=== PATIENT | male | born 1955 | race Caucasian/White ===

== ENCOUNTER 2016-12-25 09:34 | Outpatient (CLI) | payer OTHER ==
[~2016-12-25] VITALS: Ht 185.4 cm; Wt 87.1 kg
[2016-12-25] VITALS (19 sets, daily range): BP systolic 107–155; BP diastolic 71–105; PULSE 61–99
[~2016-12-25 09:34] MED LIST: PRILOSEC 20MG20 MG PO
[2017-01-04] MEDS ORDERED: NORCO 325 MG-51 TAB PO (13:20)
[2017-01-04] MEDS ORDERED: FLEXERIL 1010 MG/TAB PO (13:20)
== END 2016-12-25 15:42 | disposition home or self-care (01) ==
LOC: COL.RAD 09:34
DX: R91.8 Other nonspecific abnormal finding of lung field (principal)

== ENCOUNTER → 2016-12-27 | Outpatient (CLI) | payer OTHER | LOC: COL.PUL 08:00 | DX: R91.8 Other nonspecific abnormal finding of lung field (principal); Z87.891 Personal history of nicotine dependence ==

== ENCOUNTER → 2017-01-09 | Outpatient (CLI) | payer OTHER ==
[~2017-01-09] MED LIST changes: +FLEXERIL 1010 MG/TAB PO; +NORCO 325 MG-51 TAB PO
== END ==
LOC: COL.RAD 07:30
DX: C34.31 Malignant neoplasm of lower lobe, right bronchus or lung (principal); G31.9 Degenerative disease of nervous system, unspecified; M89.9 Disorder of bone, unspecified
CPT/HCPCS: A9585

== ENCOUNTER 2017-03-07 01:09 | Observation (INO) | payer OTHER ==
[~2017-03-07] VITALS: Ht 185.4 cm; Wt 89.0 kg
[2017-03-07] VITALS (21 sets, daily range): BP systolic 95–111; BP diastolic 55–65; PULSE 73–93; TEMP 97.3–100.9
[2017-03-07 01:51] LABS: MEAN CELL VOLUME 86 fl (80.0-100.0); MEAN CORPUSCULAR HGB CONC 32 g/dl (33.0-37.0); MEAN PLATELET VOLUME 9.2 fl (7.4-10.4); PLATELET COUNT 205 K/mm3 (130-400); RED BLOOD COUNT 3.53 M/mm3 (4.20-5.60); WHITE BLOOD COUNT 6.9 K/mm3 (4.8-10.8)
[2017-03-07 01:54] LABS: ADD PATHOLOGY DIFF REVIEW NO; HEMATOCRIT 30.5 % (42.0-52.0); HEMOGLOBIN 9.7 g/dl (13.5-18.0); MEAN CORPUSCULAR HEMOGLOBIN 27 pg (27.0-31.0)
[2017-03-07 02:01] LABS: ADJUSTED CALCIUM 9.8 mg/dL (8.4-10.2); ALBUMIN 3.5 gm/dL (3.5-5.0); BILIRUBIN,TOTAL 0.5 mg/dL (0.0-1.0); CALCIUM 9.4 mg/dL (8.4-10.2); CREATININE, serum 0.88 mg/dL (0.66-1.25); MAGNESIUM 1.7 mg/dL (1.6-2.3); PHOSPHOROUS 2.8 mg/dL (2.5-4.5); POTASSIUM 4.3 mmol/L (3.4-5.0); TOTAL PROTEIN 7.7 gm/dL (6.4-8.2)
[2017-03-07 02:06] LABS: BAND 1 % (0-10); BASOPHIL 1 % (0-2); LYMPHOCYTE 3 % (20.0-51.0); NEUTROPHILS 93 % (42.0-75.2); TOTAL CELLS COUNTED 100
[2017-03-07 02:07] LABS: HYPOCHROMIA 1+; MICROCYTOSIS 1+; POIKILOCYTOSIS 1+; POLYCHROMASIA 1+; SPHEROCYTE 1+
[2017-03-07 02:08] LABS: ANISOCYTOSIS 2+
[2017-03-07 02:12] LABS: COLLECTION METHOD CLEAN CATCH
[2017-03-07 02:17] LABS: MUCOUS Present /lpf; PH 5 (5-8); SQUAMOUS EPITHELIAL 0-2 /hpf; URINE APPEARANCE Hazy; URINE BACTERIA None Seen /hpf; URINE BILIRUBIN Negative (NEGATIVE); URINE BLOOD 1+ (NEGATIVE); URINE COLOR Amber; URINE GLUCOSE Negative (NEGATIVE); URINE KETONE Negative (NEGATIVE); URINE LEUKOCYTE ESTERASE Negative (NEGATIVE); URINE PROTEIN(semi-quant) 1+ (NEGATIVE)
[2017-03-07 03:02] LABS: INFLUENZA A NEGATIVE; INFLUENZA B NEGATIVE
[2017-03-07] MEDS ORDERED: PROFERRIN ES12 MG PO (04:14)
[2017-03-07] MEDS ORDERED: CALCIUM 600MG+D1 TAB PO (04:15)
[2017-03-08 00:35] VITALS: BP 121/67; PULSE 95; TEMP 98.7; TEMP 99.4
[2017-03-08 01:20] VITALS: TEMP 99.2
[2017-03-08 03:00] VITALS: TEMP 99.5
[2017-03-08 04:14] VITALS: BP 116/67; PULSE 76; TEMP 99.3
[2017-03-08 07:14] LABS: BASO % 0.2 % (0.0-2.0); EOS # 0.1 (0.0-0.7); GRAN # 3.8 (1.4-6.5); GRAN % 72.4 % (42.2-75.2); LYMPH % 18.5 % (20.0-51.0); MEAN CELL VOLUME 87 fl (80.0-100.0); MEAN CORPUSCULAR HGB CONC 31 g/dl (33.0-37.0); MEAN PLATELET VOLUME 9.2 fl (7.4-10.4); MONO # 0.4 (0.1-0.6); MONO % 7.1 % (1.7-9.3); PLATELET COUNT 168 K/mm3 (130-400); RED BLOOD COUNT 3.28 M/mm3 (4.20-5.60); WHITE BLOOD COUNT 5.2 K/mm3 (4.8-10.8)
[2017-03-08 07:17] LABS: HEMATOCRIT 28.6 % (42.0-52.0); HEMOGLOBIN 8.9 g/dl (13.5-18.0); MEAN CORPUSCULAR HEMOGLOBIN 27 pg (27.0-31.0)
[2017-03-08 07:22] LABS: CALCIUM 8.6 mg/dL (8.4-10.2); CREATININE, serum 0.83 mg/dL (0.66-1.25); POTASSIUM 4.2 mmol/L (3.4-5.0)
[2017-03-08 07:53] VITALS: BP 118/67; PULSE 72; TEMP 98.2
[2017-03-08] MEDS ORDERED: CEPHALEXIN500 M1 PO (11:19)
== END 2017-03-08 14:46 | disposition home or self-care (01) ==
LOC: COL.ER 01:09 → MEDICAL 03:20
PROVIDERS: Emergency Medicine; Nurse Practitioner
DX: R50.9 Fever, unspecified (principal); C34.90 Malignant neoplasm of unspecified part of unspecified bronchus or lung; C77.9 Secondary and unspecified malignant neoplasm of lymph node, unspecified; Z87.891 Personal history of nicotine dependence; Z83.3 Family history of diabetes mellitus; Z82.3 Family history of stroke; Z82.49 Family history of ischemic heart disease and other diseases of the circulatory system
CPT/HCPCS: 99223-AI; G0378; J1650; J1956; J2405; J7030

== ENCOUNTER 2017-04-25 13:28 | Emergency (ER) | payer OTHER ==
[~2017-04-25] VITALS: Ht 182.9 cm; Wt 87.7 kg
[~2017-04-25 13:28] MED LIST changes: +CALCIUM 600MG+D1 TAB PO; +CEPHALEXIN500 M1 PO; +PROFERRIN ES12 MG PO
[2017-04-25 14:15] LABS: MEAN CELL VOLUME 94 fl (80.0-100.0); MEAN CORPUSCULAR HGB CONC 32 g/dl (33.0-37.0); MEAN PLATELET VOLUME 9.5 fl (7.4-10.4); PLATELET COUNT 273 K/mm3 (130-400); REDCELL DISTRIBUTION WIDTH-CV 21.9 % (11.5-14.5)
[2017-04-25 14:16] LABS: ALBUMIN 3.3 gm/dL (3.5-5.0); BILIRUBIN,TOTAL 0.6 mg/dL (0.0-1.0); CALCIUM 8.3 mg/dL (8.4-10.2); CREATININE, serum 0.72 mg/dL (0.66-1.25); POTASSIUM 3.1 mmol/L (3.4-5.0); TOTAL PROTEIN 7.2 gm/dL (6.4-8.2)
[2017-04-25 14:32] LABS: HEMATOCRIT 29.1 % (42.0-52.0); HEMOGLOBIN 9.3 g/dl (13.5-18.0); MEAN CORPUSCULAR HEMOGLOBIN 30 pg (27.0-31.0)
[2017-04-25 14:37] LABS: BAND 14 % (0-10); EOSINOPHIL 2 % (0-4); LYMPHOCYTE 9 % (20.0-51.0); MYELOCYTE 2 % (0-0); NEUTROPHILS 71 % (42.0-75.2); PLATELET ESTIMATE NORMAL (NORMAL)
[2017-04-25 15:07] LABS: ARTERIAL BLD GAS O2 SATURATION 88.1 % (92-100); ARTERIAL BLD GAS TCO2 CT 20.6; ARTERIAL BLOOD GAS BASE EXCESS -3.1 (-2-2); ARTERIAL BLOOD GAS HCO3 19.8 meq/L (22-26); ARTERIAL BLOOD GAS PCO2 27.7 mmHg (35-45); ARTERIAL BLOOD GAS PO2 53.2 mmHg (80-100); ARTERIAL BLOOD GAS pH 7.47 (7.35-7.45)
[2017-04-25 18:07] VITALS: BP 115/77; PULSE 100; TEMP 98.6
== END 2017-04-25 18:29 | disposition short-term general hospital (02) ==
LOC: COL.ER 13:28
PROVIDERS: Family Medicine
DX: J96.90 Respiratory failure, unspecified, unspecified whether with hypoxia or hypercapnia (principal); J18.9 Pneumonia, unspecified organism; Z85.118 Personal history of other malignant neoplasm of bronchus and lung; Z87.891 Personal history of nicotine dependence
CPT/HCPCS: J0456; J0696; J7030; J7050

== ENCOUNTER 2017-08-07 11:27 | Inpatient (IN) | payer OTHER ==
[~2017-08-07] VITALS: Ht 182.9 cm; Wt 98.7 kg
[2017-08-07] VITALS (261 sets, daily range): BP systolic 108–110; BP diastolic 77; PULSE 85–91; TEMP 96.9–97.9; O2SAT 84–100
[2017-08-07 12:08] LABS: MEAN CELL VOLUME 85 fl (80.0-100.0); MEAN CORPUSCULAR HGB CONC 30 g/dl (33.0-37.0); MEAN PLATELET VOLUME 9.1 fl (7.4-10.4); PLATELET COUNT 214 K/mm3 (130-400); RED BLOOD COUNT 3.74 M/mm3 (4.20-5.60); REDCELL DISTRIBUTION WIDTH-CV 19.9 % (11.5-14.5)
[2017-08-07 12:17] LABS: ALBUMIN 2.7 gm/dL (3.5-5.0); BILIRUBIN,TOTAL 1.1 mg/dL (0.0-1.0); CALCIUM 7.9 mg/dL (8.4-10.2); CREATININE, serum 1.08 mg/dL (0.66-1.25); INR 1.7 (0.8-3.0); POTASSIUM 4.2 mmol/L (3.4-5.0); PROTHROMBIN TIME 19.8 SECONDS (9.7-12.8); TOTAL PROTEIN 6.5 gm/dL (6.4-8.2)
[2017-08-07 12:18] LABS: HEMATOCRIT 31.8 % (42.0-52.0); HEMOGLOBIN 9.5 g/dl (13.5-18.0); MEAN CORPUSCULAR HEMOGLOBIN 25 pg (27.0-31.0)
[2017-08-07 12:19] LABS: PARTIAL THROMBOPLASTIN TIME 35.9 SECONDS (26.0-37.0)
[2017-08-07 12:42] LABS: BAND 29 % (0-10); LYMPHOCYTE 12 % (20.0-51.0); METAMYELOCYTE 1 % (0-0); MYELOCYTE 3 % (0-0); NEUTROPHILS 54 % (42.0-75.2); NUCLEATED RED BLOOD CELL 2 (0-6); PLATELET ESTIMATE NORMAL (NORMAL)
[2017-08-07 12:43] LABS: POLYCHROMASIA 1+
[2017-08-07 12:44] LABS: TOXIC GRANULATION PRESENT
[2017-08-07 13:15] LABS: ARTERIAL BLD GAS TCO2 CT 18.2; ARTERIAL BLOOD GAS BASE EXCESS -5.4 (-2-2); ARTERIAL BLOOD GAS HCO3 17.4 meq/L (22-26); ARTERIAL BLOOD GAS PCO2 25.5 mmHg (35-45); ARTERIAL BLOOD GAS PO2 111.1 mmHg (80-100); ARTERIAL BLOOD GAS pH 7.45 (7.35-7.45)
[2017-08-07] MEDS ORDERED: ROXICODONE 55 MG/TAB PO (14:48)
[2017-08-07] MEDS ORDERED: AMOXICILLIN 8751 TAB PO (14:48)
[2017-08-07] MEDS ORDERED: FENTANYL 12MCG TD (14:48)
[2017-08-07] MEDS ORDERED: PRILOSEC 20MG20 MG PO (14:49)
[2017-08-07] MEDS ORDERED: SOLU-MEDRO125 MG/21 IJ (14:50)
[2017-08-07] MEDS ORDERED: BENADRYL50 MG PO (14:50)
[2017-08-08] VITALS (498 sets, daily range): BP systolic 100–124; BP diastolic 65–85; PULSE 69–87; TEMP 97–98.7; O2SAT 54–100
[2017-08-08 04:31] LABS: MEAN CELL VOLUME 87 fl (80.0-100.0); MEAN CORPUSCULAR HGB CONC 30 g/dl (33.0-37.0); MEAN PLATELET VOLUME 10.3 fl (7.4-10.4); PLATELET COUNT 170 K/mm3 (130-400); RED BLOOD COUNT 2.93 M/mm3 (4.20-5.60); REDCELL DISTRIBUTION WIDTH-CV 19.8 % (11.5-14.5)
[2017-08-08 04:37] LABS: HEMATOCRIT 25.4 % (42.0-52.0); HEMOGLOBIN 7.6 g/dl (13.5-18.0); MEAN CORPUSCULAR HEMOGLOBIN 26 pg (27.0-31.0)
[2017-08-08 04:41] LABS: ALBUMIN 2.1 gm/dL (3.5-5.0); BILIRUBIN,TOTAL 0.6 mg/dL (0.0-1.0); CALCIUM 7.3 mg/dL (8.4-10.2); CREATININE, serum 0.94 mg/dL (0.66-1.25); TOTAL PROTEIN 5.2 gm/dL (6.4-8.2)
[2017-08-08 05:07] LABS: ANISOCYTOSIS 2+; BAND 8 % (0-10); HYPOCHROMIA 3+; LYMPHOCYTE 5 % (20.0-51.0); NEUTROPHILS 86 % (42.0-75.2); PLATELET ESTIMATE NORMAL (NORMAL)
[2017-08-08 09:02] LABS: ARTERIAL BLD GAS O2 SATURATION 96.3 % (92-100); ARTERIAL BLD GAS TCO2 CT 20.2; ARTERIAL BLOOD GAS BASE EXCESS -3.9 (-2-2); ARTERIAL BLOOD GAS HCO3 19.3 meq/L (22-26); ARTERIAL BLOOD GAS PCO2 27.7 mmHg (35-45); ARTERIAL BLOOD GAS PO2 87.4 mmHg (80-100); ARTERIAL BLOOD GAS pH 7.46 (7.35-7.45)
[2017-08-08 13:07] LABS: COLLECTION METHOD CLEAN CATCH
[2017-08-08 13:14] LABS: MUCOUS Present /lpf; PH 6 (5-8); SQUAMOUS EPITHELIAL None Seen /hpf; URINE APPEARANCE Hazy; URINE BACTERIA None Seen /hpf; URINE BILIRUBIN Negative (NEGATIVE); URINE BLOOD Negative (NEGATIVE); URINE COLOR Yellow; URINE GLUCOSE Negative (NEGATIVE); URINE KETONE Negative (NEGATIVE); URINE LEUKOCYTE ESTERASE Negative (NEGATIVE); URINE NITRATE Negative (NEGATIVE); URINE PROTEIN(semi-quant) 1+ (NEGATIVE); URINE RBC 0-2 /hpf; URINE UROBILINOGEN Negative (NEGATIVE)
[2017-08-08] MEDS ORDERED: FENTANYL 50MCG TD (19:54)
[2017-08-09 03:03] VITALS: BP 117/76; PULSE 93; TEMP 98.1
[2017-08-09 06:52] LABS: MEAN CELL VOLUME 89 fl (80.0-100.0); MEAN CORPUSCULAR HGB CONC 29 g/dl (33.0-37.0); MEAN PLATELET VOLUME 10.6 fl (7.4-10.4); PLATELET COUNT 152 K/mm3 (130-400); REDCELL DISTRIBUTION WIDTH-CV 19.9 % (11.5-14.5)
[2017-08-09 07:04] LABS: HEMATOCRIT 23.9 % (42.0-52.0); MEAN CORPUSCULAR HEMOGLOBIN 26 pg (27.0-31.0)
[2017-08-09 07:08] LABS: ALBUMIN 2.1 gm/dL (3.5-5.0); BILIRUBIN,TOTAL 0.6 mg/dL (0.0-1.0); CALCIUM 7.4 mg/dL (8.4-10.2); CREATININE, serum 0.7 mg/dL (0.66-1.25); POTASSIUM 3.7 mmol/L (3.4-5.0); TOTAL PROTEIN 5.2 gm/dL (6.4-8.2)
[2017-08-09 08:06] VITALS: BP 113/73; PULSE 94; TEMP 98.7
[2017-08-09 08:42] LABS: ANISOCYTOSIS 1+; BAND 5 % (0-10); HYPOCHROMIA 3+; LYMPHOCYTE 4 % (20.0-51.0); METAMYELOCYTE 1 % (0-0); NEUTROPHILS 80 % (42.0-75.2); NUCLEATED RED BLOOD CELL 1 (0-6); PLATELET ESTIMATE NORMAL (NORMAL)
[2017-08-09 11:30] VITALS: BP 115/73; PULSE 89; TEMP 97.8
[2017-08-09 16:44] VITALS: BP 126/74; PULSE 107; TEMP 97.8
[2017-08-09 20:34] VITALS: BP 136/84; PULSE 114; TEMP 99.2
[2017-08-09] MEDS ORDERED: FLEXERIL5 MG PO (22:36)
[2017-08-09 23:38] VITALS: BP 119/80; PULSE 116; TEMP 97.3
[2017-08-10] VITALS (9 sets, daily range): BP systolic 112–135; BP diastolic 48–90; PULSE 105–119; TEMP 97.6–99.7
[2017-08-10 06:36] LABS: MEAN CELL VOLUME 88 fl (80.0-100.0); MEAN CORPUSCULAR HGB CONC 30 g/dl (33.0-37.0); MEAN PLATELET VOLUME 10.8 fl (7.4-10.4); PLATELET COUNT 128 K/mm3 (130-400); RED BLOOD COUNT 2.65 M/mm3 (4.20-5.60); REDCELL DISTRIBUTION WIDTH-CV 20.4 % (11.5-14.5)
[2017-08-10 06:46] LABS: HEMATOCRIT 23.3 % (42.0-52.0); HEMOGLOBIN 6.9 g/dl (13.5-18.0); MEAN CORPUSCULAR HEMOGLOBIN 26 pg (27.0-31.0)
[2017-08-10 06:50] LABS: ALBUMIN 2.2 gm/dL (3.5-5.0); BILIRUBIN,TOTAL 0.9 mg/dL (0.0-1.0); CALCIUM 7.2 mg/dL (8.4-10.2); CREATININE, serum 0.64 mg/dL (0.66-1.25); POTASSIUM 3.6 mmol/L (3.4-5.0); TOTAL PROTEIN 5.4 gm/dL (6.4-8.2)
[2017-08-10 07:38] LABS: ANISOCYTOSIS 2+; BAND 5 % (0-10); LYMPHOCYTE 3 % (20.0-51.0); METAMYELOCYTE 3 % (0-0); NEUTROPHILS 84 % (42.0-75.2); NUCLEATED RED BLOOD CELL 2 (0-6); TOXIC GRANULATION PRESENT
[2017-08-10 07:39] LABS: HYPOCHROMIA 1+; POLYCHROMASIA 1+
[2017-08-11 03:59] VITALS: BP 116/76; PULSE 105; TEMP 98.8
[2017-08-11 08:46] VITALS: BP 111/76; PULSE 106; TEMP 99.1
[2017-08-11 09:50] LABS: BILIRUBIN,TOTAL 0.9 mg/dL (0.0-1.0); CALCIUM 6.8 mg/dL (8.4-10.2); CREATININE, serum 0.67 mg/dL (0.66-1.25); POTASSIUM 3.4 mmol/L (3.4-5.0); TOTAL PROTEIN 5.1 gm/dL (6.4-8.2)
[2017-08-11 11:32] VITALS: BP 99/65; PULSE 108; TEMP 100
[2017-08-11 13:10] LABS: BASO # 0.1 (0.0-0.2); BASO % 0.2 % (0.0-2.0); EOS % 0.1 % (0-4.0); GRAN # 26.5 (1.4-6.5); GRAN % 81.3 % (42.2-75.2); LYMPH # 0.9 (1.2-3.4); LYMPH % 2.7 % (20.0-51.0); MEAN CELL VOLUME 87 fl (80.0-100.0); MEAN CORPUSCULAR HGB CONC 30 g/dl (33.0-37.0); MONO # 2.2 (0.1-0.6); MONO % 6.6 % (1.7-9.3); PLATELET COUNT 131 K/mm3 (130-400); RED BLOOD COUNT 2.77 M/mm3 (4.20-5.60); REDCELL DISTRIBUTION WIDTH-CV 20.7 % (11.5-14.5)
[2017-08-11 13:14] LABS: HEMOGLOBIN 7.3 g/dl (13.5-18.0); MEAN CORPUSCULAR HEMOGLOBIN 26 pg (27.0-31.0)
[2017-08-11 15:59] VITALS: BP 103/66; PULSE 104; TEMP 98.7
[2017-08-11 19:18] VITALS: BP 114/70; PULSE 106; TEMP 98.2
[2017-08-11 21:17] LABS: COLLECTION METHOD CLEAN CATCH
[2017-08-11 21:40] LABS: MUCOUS Present /lpf; PH 5 (5-8); SQUAMOUS EPITHELIAL None Seen /hpf; URINE APPEARANCE Cloudy; URINE BACTERIA None Seen /hpf; URINE BILIRUBIN Negative (NEGATIVE); URINE BLOOD 2+ (NEGATIVE); URINE COLOR Amber; URINE GLUCOSE 1+ (NEGATIVE); URINE KETONE Negative (NEGATIVE); URINE LEUKOCYTE ESTERASE Trace (NEGATIVE); URINE NITRATE Negative (NEGATIVE); URINE PROTEIN(semi-quant) 2+ (NEGATIVE); URINE UROBILINOGEN Negative (NEGATIVE)
[2017-08-11 23:13] VITALS: BP 119/77; PULSE 100; TEMP 98.5
[2017-08-12 04:01] VITALS: BP 108/67; PULSE 105; TEMP 98
[2017-08-12 07:34] VITALS: BP 106/68; PULSE 104; TEMP 98.9
[2017-08-12 07:38] LABS: MEAN CELL VOLUME 86 fl (80.0-100.0); MEAN CORPUSCULAR HGB CONC 30 g/dl (33.0-37.0); MEAN PLATELET VOLUME 9.8 fl (7.4-10.4); PLATELET COUNT 126 K/mm3 (130-400); RED BLOOD COUNT 2.73 M/mm3 (4.20-5.60); REDCELL DISTRIBUTION WIDTH-CV 21.1 % (11.5-14.5)
[2017-08-12 07:40] LABS: HEMATOCRIT 23.5 % (42.0-52.0); HEMOGLOBIN 7.1 g/dl (13.5-18.0); MEAN CORPUSCULAR HEMOGLOBIN 26 pg (27.0-31.0)
[2017-08-12 07:44] LABS: ALBUMIN 2.1 gm/dL (3.5-5.0); CREATININE, serum 0.7 mg/dL (0.66-1.25); POTASSIUM 3.4 mmol/L (3.4-5.0); TOTAL PROTEIN 5.3 gm/dL (6.4-8.2)
[2017-08-12 08:10] LABS: IRON,SERUM 21 ug/dL (35-150)
[2017-08-12 08:10] LABS: ARTERIAL BLD GAS O2 SATURATION 90.9 % (92-100); ARTERIAL BLD GAS TCO2 CT 19.6; ARTERIAL BLOOD GAS BASE EXCESS -4.6 (-2-2); ARTERIAL BLOOD GAS HCO3 18.8 meq/L (22-26); ARTERIAL BLOOD GAS PCO2 27.8 mmHg (35-45); ARTERIAL BLOOD GAS pH 7.45 (7.35-7.45)
[2017-08-12 08:19] LABS: TOTAL IRON BINDING CAPACITY 131 ug/dL (261-462)
[2017-08-12 08:37] LABS: ANISOCYTOSIS 2+; BAND 1 % (0-10); HYPOCHROMIA 1+; LYMPHOCYTE 9 % (20.0-51.0); METAMYELOCYTE 3 % (0-0); MYELOCYTE 1 % (0-0); NEUTROPHILS 82 % (42.0-75.2); PLATELET ESTIMATE DECREASED (NORMAL)
[2017-08-12 08:38] LABS: POLYCHROMASIA 1+
[2017-08-12 10:21] LABS: FERRITIN 5770 ng/mL (18-464)
[2017-08-12 12:14] VITALS: BP 119/71; PULSE 110; TEMP 98
[2017-08-12 15:17] VITALS: BP 110/65; PULSE 99; TEMP 98.7
[2017-08-12 17:03] LABS: FOLATE (FOLIC ACID) 3.4 ng/mL (7.0-31.4)
[2017-08-12 19:50] VITALS: BP 112/76; PULSE 93; TEMP 97.4
[2017-08-12 23:52] VITALS: BP 117/73; PULSE 90; TEMP 98.1
[2017-08-13 04:24] VITALS: BP 105/78; PULSE 86; TEMP 97.9
[2017-08-13 06:52] LABS: ALBUMIN 2.1 gm/dL (3.5-5.0); BILIRUBIN,TOTAL 0.7 mg/dL (0.0-1.0); CALCIUM 7.5 mg/dL (8.4-10.2); CREATININE, serum 0.69 mg/dL (0.66-1.25); POTASSIUM 3.8 mmol/L (3.4-5.0); TOTAL PROTEIN 5.2 gm/dL (6.4-8.2)
[2017-08-13 08:44] VITALS: BP 123/79; PULSE 101; TEMP 97.8
[2017-08-13 11:28] VITALS: BP 120/64; PULSE 100; TEMP 97.7
[2017-08-13 15:45] VITALS: BP 123/81; PULSE 95; TEMP 98.6
[2017-08-13 19:40] VITALS: BP 127/82; PULSE 97; TEMP 97.3
[2017-08-13 23:08] VITALS: BP 127/81; PULSE 94; TEMP 97.5
[2017-08-14] VITALS (11 sets, daily range): BP systolic 119–143; BP diastolic 75–96; PULSE 87–108; TEMP 97.5–98.7
[2017-08-14 07:45] LABS: MEAN CELL VOLUME 87 fl (80.0-100.0); MEAN CORPUSCULAR HGB CONC 30 g/dl (33.0-37.0); PLATELET COUNT 137 K/mm3 (130-400); RED BLOOD COUNT 2.54 M/mm3 (4.20-5.60); REDCELL DISTRIBUTION WIDTH-CV 21.4 % (11.5-14.5)
[2017-08-14 07:52] LABS: MEAN CORPUSCULAR HEMOGLOBIN 26 pg (27.0-31.0)
[2017-08-14 07:53] LABS: HEMATOCRIT 22.2 % (42.0-52.0); HEMOGLOBIN 6.6 g/dl (13.5-18.0)
[2017-08-14 07:54] LABS: CALCIUM 7.7 mg/dL (8.4-10.2); CREATININE, serum 0.75 mg/dL (0.66-1.25); POTASSIUM 3.5 mmol/L (3.4-5.0)
[2017-08-14 08:08] LABS: AMYLASE 57 U/L (30-110); LIPASE 59 U/L (23-300)
[2017-08-14 08:56] LABS: BAND 4 % (0-10); LYMPHOCYTE 11 % (20.0-51.0); MYELOCYTE 1 % (0-0); NEUTROPHILS 81 % (42.0-75.2)
[2017-08-14 08:57] LABS: PLATELET ESTIMATE NORMAL (NORMAL)
[2017-08-14 08:58] LABS: ANISOCYTOSIS 2+; HYPOCHROMIA 1+
[2017-08-15] VITALS (7 sets, daily range): BP systolic 104–133; BP diastolic 42–87; PULSE 56–104; TEMP 97.6–98.7
[2017-08-15 06:32] LABS: MEAN CELL VOLUME 87 fl (80.0-100.0); MEAN CORPUSCULAR HGB CONC 31 g/dl (33.0-37.0); MEAN PLATELET VOLUME 10.2 fl (7.4-10.4); PLATELET COUNT 121 K/mm3 (130-400); RED BLOOD COUNT 2.61 M/mm3 (4.20-5.60)
[2017-08-15 06:42] LABS: MEAN CORPUSCULAR HEMOGLOBIN 27 pg (27.0-31.0)
[2017-08-15 06:43] LABS: HEMATOCRIT 22.7 % (42.0-52.0)
[2017-08-15 06:48] LABS: INR 1.3 (0.8-3.0); PROTHROMBIN TIME 14.4 SECONDS (9.7-12.8)
[2017-08-15 06:50] LABS: ALBUMIN 2.2 gm/dL (3.5-5.0); BILIRUBIN,TOTAL 0.5 mg/dL (0.0-1.0); CALCIUM 7.6 mg/dL (8.4-10.2); CREATININE, serum 0.73 mg/dL (0.66-1.25); MAGNESIUM 2.4 mg/dL (1.6-2.3); POTASSIUM 3.9 mmol/L (3.4-5.0); TOTAL PROTEIN 5.1 gm/dL (6.4-8.2)
[2017-08-15 07:01] LABS: ANISOCYTOSIS 2+; BAND 8 % (0-10); HYPOCHROMIA 3+; LYMPHOCYTE 9 % (20.0-51.0); NEUTROPHILS 81 % (42.0-75.2)
[2017-08-15 07:02] LABS: STOMATOCYTE 1+
[2017-08-16 04:05] VITALS: BP 140/95; PULSE 114
[2017-08-16 06:20] LABS: MEAN CELL VOLUME 87 fl (80.0-100.0); MEAN CORPUSCULAR HGB CONC 31 g/dl (33.0-37.0); MEAN PLATELET VOLUME 10.1 fl (7.4-10.4); PLATELET COUNT 131 K/mm3 (130-400); RED BLOOD COUNT 2.74 M/mm3 (4.20-5.60); REDCELL DISTRIBUTION WIDTH-CV 21.4 % (11.5-14.5)
[2017-08-16 06:24] LABS: HEMATOCRIT 23.7 % (42.0-52.0); HEMOGLOBIN 7.3 g/dl (13.5-18.0); MEAN CORPUSCULAR HEMOGLOBIN 27 pg (27.0-31.0)
[2017-08-16 06:31] LABS: CALCIUM 7.7 mg/dL (8.4-10.2); CREATININE, serum 0.76 mg/dL (0.66-1.25); POTASSIUM 3.9 mmol/L (3.4-5.0)
[2017-08-16 06:43] LABS: BAND 3 % (0-10); LYMPHOCYTE 9 % (20.0-51.0); NEUTROPHILS 82 % (42.0-75.2); NUCLEATED RED BLOOD CELL 2 (0-6)
[2017-08-16 06:44] LABS: ANISOCYTOSIS 1+; HYPERSEGMENTED POLYS PRESENT; HYPOCHROMIA 3+; PLATELET ESTIMATE DECREASED (NORMAL)
[2017-08-16 07:21] VITALS: BP 121/84; PULSE 108; TEMP 98.3
[2017-08-16 11:07] VITALS: BP 142/86; PULSE 122; TEMP 98.8
[2017-08-16 21:37] VITALS: BP 122/61; PULSE 123; TEMP 98.4
[2017-08-17 05:54] LABS: MEAN CELL VOLUME 86 fl (80.0-100.0); MEAN CORPUSCULAR HGB CONC 31 g/dl (33.0-37.0); MEAN PLATELET VOLUME 10.2 fl (7.4-10.4); PLATELET COUNT 129 K/mm3 (130-400); REDCELL DISTRIBUTION WIDTH-CV 21.9 % (11.5-14.5)
[2017-08-17 06:00] LABS: HEMATOCRIT 23.3 % (42.0-52.0); HEMOGLOBIN 7.1 g/dl (13.5-18.0); MEAN CORPUSCULAR HEMOGLOBIN 26 pg (27.0-31.0)
[2017-08-17 06:09] LABS: CALCIUM 7.6 mg/dL (8.4-10.2); CREATININE, serum 0.82 mg/dL (0.66-1.25); POTASSIUM 4.1 mmol/L (3.4-5.0)
[2017-08-17 06:15] LABS: ANISOCYTOSIS 2+; BAND 14 % (0-10); HYPOCHROMIA 2+; LYMPHOCYTE 5 % (20.0-51.0); METAMYELOCYTE 1 % (0-0); MYELOCYTE 2 % (0-0); NEUTROPHILS 77 % (42.0-75.2); PLATELET ESTIMATE NORMAL (NORMAL)
[2017-08-17 08:27] VITALS: BP 125/67; PULSE 100; TEMP 98.2
[2017-08-17] MEDS ORDERED: OXYCONTIN30 MG PO (12:25)
[2017-08-17] MEDS ORDERED: ROXANOL 20MG20 MG/ML PO (12:25)
[2017-08-17] MEDS ORDERED: SENOKOT S 50 MG1 TAB PO (12:25)
[2017-08-17] MEDS ORDERED: ATIVAN 1MG T1 MG/TAB PO (12:25)
[2017-08-17] MEDS ORDERED: FENTANYL 75MCG TD (12:25)
[2017-08-17 14:07] VITALS: BP 125/67; PULSE 100; TEMP 98.2
== END 2017-08-17 14:30 | disposition hospice, home (50) | DRG 872 ==
LOC: COL.ER 11:27 → ICU 14:02 → MEDICAL 08-08 16:48
PROVIDERS: Emergency Medicine; Internal Medicine; Internal Medicine Infectious Disease; Nurse Practitioner; Nurse Practitioner Family; Physician Assistant; Student in an Organized Health Care Education/Training Program
DX: A41.9 Sepsis, unspecified organism (principal); C34.31 Malignant neoplasm of lower lobe, right bronchus or lung; C78.01 Secondary malignant neoplasm of right lung; C78.02 Secondary malignant neoplasm of left lung; Z51.5 Encounter for palliative care; Z66 Do not resuscitate; C78.7 Secondary malignant neoplasm of liver and intrahepatic bile duct; C78.89 Secondary malignant neoplasm of other digestive organs; E87.2 Acidosis; E87.1 Hypo-osmolality and hyponatremia; C79.51 Secondary malignant neoplasm of bone; E44.0 Moderate protein-calorie malnutrition; Z87.891 Personal history of nicotine dependence; J44.9 Chronic obstructive pulmonary disease, unspecified; D63.0 Anemia in neoplastic disease
CPT/HCPCS: 99223-AI; 99232-AI; 99233-AI; 99239; A9284; J0692; J1170; J1650; J1940; J2405; J2543; J2920; J3010; J3370; J7030; J7050; J7120; J8540; P9016; Q9967